=== PATIENT | female | born 2000 | race Caucasian/White ===

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

== ENCOUNTER → 2021-03-26 | Outpatient (REF) | payer OTHER ==
[2021-03-26 17:57] LABS: FOLLICLE STIMULATING HORMONE 3.3 mIU/mL; LUTEINIZING HORMONE 4.5 mIU/mL; PROLACTIN 8.5 NG/ML
== END ==
LOC: M LAB REF 16:19
PROVIDERS: ATTEND Internal Medicine
DX: N91.2 Amenorrhea, unspecified (principal); Z02.1 Encounter for pre-employment examination

== ENCOUNTER → 2024-04-28 | Outpatient (REF) | payer OTHER | LOC: M SFHCWAGY 13:25 | PROVIDERS: ATTEND Nurse Practitioner Family | DX: Z12.4 Encounter for screening for malignant neoplasm of cervix (principal) ==

== ENCOUNTER → 2024-06-02 | Outpatient (CLI) | payer OTHER | LOC: M RAD 08:47 | PROVIDERS: ATTEND Internal Medicine | DX: R10.11 Right upper quadrant pain (principal); R93.2 Abnormal findings on diagnostic imaging of liver and biliary tract ==

== ENCOUNTER → 2024-07-07 | Outpatient (CLI) | payer OTHER | LOC: M WHC 14:49 | PROVIDERS: ATTEND Nurse Practitioner Family | DX: N92.6 Irregular menstruation, unspecified (principal); R10.2 Pelvic and perineal pain ==

== ENCOUNTER → 2025-01-10 | Outpatient (REF) | payer OTHER ==
[2025-01-10 13:41] LABS: HCG, SERUM QUANTITATIVE < 2.6 MIU/ML (<4.2)
[2025-01-10 13:43] LABS: C REACTIVE PROTEIN QUANTITATIV 0.74 MG/DL (<1.0)
[2025-01-10 14:18] LABS: MONO REFLEX EBV COMP POSITIVE (NEGATIVE)
== END ==
LOC: M LAB REF 12:41
PROVIDERS: ATTEND Internal Medicine
DX: N91.2 Amenorrhea, unspecified (principal); R10.12 Left upper quadrant pain

== ENCOUNTER → 2025-01-10 | Outpatient (REF) | payer OTHER | LOC: M LAB REF 12:06 | PROVIDERS: ATTEND Internal Medicine | DX: J02.9 Acute pharyngitis, unspecified (principal) ==

== ENCOUNTER → 2025-01-25 | Outpatient (REF) | payer OTHER ==
[2025-01-25 21:28] LABS: APPEARANCE, URINE CLEAR (CLEAR); BACTERIA, URINE AUTO NEGATIVE (NEGATIVE); BILIRUBIN, URINE AUTO NEGATIVE (NEGATIVE); BLOOD, URINE BLOOD NEGATIVE (NEGATIVE); COLOR, URINE YELLOW (YELLOW); GLUCOSE, URINE (UA) AUTO NEGATIVE (NEGATIVE); KETONE, URINE AUTO NEGATIVE (NEGATIVE); LEUKOCYTE ESTERASE, URINE AUTO 2+ (NEGATIVE); NITRITE, URINE AUTO NEGATIVE (NEGATIVE); PROTEIN, URINE AUTO NEGATIVE (NEGATIVE); RBC, URINE AUTO 1 /HPF (0-3); SPECIFIC GRAVITY URINE AUTO 1.012 (1.002-1.035); SQUAMOUS EPITHELIAL CELL UR AU 1 /HPF (0-6); UROBILINOGEN, URINE AUTO 0.2 mg/dL (0.0-2.0); WBC, URINE AUTO 3 /HPF (0-3)
[2025-01-25 23:50] LABS: Trichomonas vaginalis (AMP) NOT DETECTED (NEGATIVE)
[2025-01-26 00:14] LABS: GC DNA AMPLIFICATION NEGATIVE (NEGATIVE)
== END ==
LOC: M LAB REF 20:47
PROVIDERS: ATTEND Physician Assistant Medical
DX: N39.0 Urinary tract infection, site not specified (principal); Z20.2 Contact with and (suspected) exposure to infections with a predominantly sexual mode of transmission

== ENCOUNTER → 2025-01-28 | Outpatient (CLI) | payer OTHER ==
[2025-01-28 18:21] LABS: BASO # 0.1 10^3/uL (0.0-0.2); BASO % 0.8 % (0.0-1.0); EOS % 0.7 % (0.0-3.0); HEMATOCRIT 42.8 % (36.0-47.0); HEMOGLOBIN 14.4 g/dl (12.0-15.5); LYMPH # 2.5 10^3/uL (1.5-5.0); LYMPH % 42.5 % (24.0-44.0); MEAN CORPUSCULAR HGB CONC 33.6 g/dl (32.0-36.5); MEAN CORPUSCULAR VOLUME 92.2 fl (80.0-96.0); MONO # 0.5 10^3/uL (0.0-0.8); MONO % 7.6 % (2.0-8.0); NEUTROPHILS # 2.8 10^3/uL (1.5-8.5); NEUTROPHILS % 47.6 % (36.0-66.0); PLATELET COUNT, AUTOMATED 264 10^3/uL (150-450); RED BLOOD COUNT 4.64 10^6/uL (4.00-5.40); WHITE BLOOD COUNT 5.9 10^3/uL (4.0-10.0)
[2025-01-28 18:47] LABS: ALKALINE PHOSPHATASE 81 U/L (35-104); ALT/SGPT 59 U/L (7.0-40); AST/SGOT 32 U/L (<34); BILIRUBIN,TOTAL 0.6 MG/DL (0.3-1.2); BLOOD UREA NITROGEN 14 MG/DL (9-23); CALCIUM LEVEL 9.6 MG/DL (8.5-10.1); CARBON DIOXIDE LEVEL 31 MMOL/L (20-31); CHLORIDE LEVEL 99 MMOL/L (98-107); CREATININE FOR GFR 0.82 MG/DL (0.55-1.30); GLOMERULAR FILTRATION RATE > 90.0 (>60); GLUCOSE, FASTING 89 MG/DL (60-100); POTASSIUM SERUM 4.2 MMOL/L (3.5-5.1); SODIUM LEVEL 138 MMOL/L (136-145); TOTAL PROTEIN 7.9 G/DL (5.7-8.2)
== END ==
LOC: M LAB 17:35
PROVIDERS: ATTEND Physician Assistant
DX: R10.32 Left lower quadrant pain (principal)

== ENCOUNTER → 2025-02-01 | Outpatient (CLI) | payer OTHER ==
[~2025-02-01] MED LIST: GASTROGRAFIN SOLUTION 30ML As Ordered ONE
== END ==
LOC: M RAD 08:49
PROVIDERS: ATTEND Internal Medicine
DX: R10.12 Left upper quadrant pain (principal); R16.0 Hepatomegaly, not elsewhere classified; R16.1 Splenomegaly, not elsewhere classified
CPT/HCPCS: 74176; Q9963

== ENCOUNTER → 2025-04-27 | Outpatient (REF) | payer OTHER ==
[~2025-04-27] MED LIST changes: +FOLI0.4T5 PO; -GASTROGRAFIN SOLUTION 30ML As Ordered ONE; +MAGN250C PO; +MULTTAB61 PO; +ONDA-282 PO; +SPIR50TA4 PO; +VITA100093 PO; +VITA100T91 PO; +VITA500C24 PO
[2025-04-27 17:32] LABS: PLATELET COUNT, AUTOMATED 287 10^3/uL (150-450)
[2025-04-27 17:35] LABS: ALT/SGPT 29 U/L (7.0-40); AST/SGOT 27 U/L (<34); CALCIUM LEVEL 10.0 MG/DL (8.5-10.1); CARBON DIOXIDE LEVEL 31 MMOL/L (20-31); CHLORIDE LEVEL 102 MMOL/L (98-107); CREATININE FOR GFR 0.89 MG/DL (0.55-1.30); GLOMERULAR FILTRATION RATE > 90.0 (>60); IRON (FE) 53 UG/DL (50-170); POTASSIUM SERUM 4.6 MMOL/L (3.5-5.1); SODIUM LEVEL 143 MMOL/L (136-145)
[2025-04-27 17:45] LABS: VITAMIN B12 LEVEL 458 PG/ML (211-911)
[2025-04-27 18:16] LABS: ESTIMATED AVERAGE GLUCOSE 100.0 MG/DL (60-110)
== END ==
LOC: M LAB REF 16:31
PROVIDERS: ATTEND Student in an Organized Health Care Education/Training Program
DX: Z13.9 Encounter for screening, unspecified (principal); R53.83 Other fatigue; Z68.26 Body mass index [BMI] 26.0-26.9, adult

== ENCOUNTER → 2025-04-28 | Outpatient (CLI) | payer OTHER | LOC: M RAD 09:25 | PROVIDERS: ATTEND Student in an Organized Health Care Education/Training Program | DX: R53.1 Weakness (principal) ==

== ENCOUNTER 2025-05-17 10:02 | Day surgery (SDC) | payer OTHER ==
[~2025-05-17] VITALS: Ht 175.3 cm; Wt 82.6 kg
[~2025-05-17 10:02] MED LIST changes: -FOLI0.4T5 PO; +FOLI400T2 PO
[2025-05-17] MEDS ORDERED: LR 1,000 ML IV SCH ×2 (10:25→13:35)
[2025-05-17] MEDS: SCOPOLAMINE 1MG TRANSDERMAL PATCH TOP ONE (10:56)
[2025-05-17] MEDS ORDERED: MIDAZOLAM INJ 2 MG/2 ML VIAL As Ordered ONE (12:37)
[2025-05-17] MEDS: INDOCYANINE GREEN 25 MG VIAL As Ordered ONE (12:48)
[2025-05-17] MEDS: ceFAZolin SOD 2 GM IV ONCE IV ONE (12:48)
[2025-05-17] MEDS: HEPARIN SOD 5000 UNITS/ML 1 ML VIAL/SYRINGE SQ ONE (12:51)
[2025-05-17] MEDS ORDERED: ACETAMINOPHEN 1000MG/100ML IV BAG As Ordered ONE (12:55)
[2025-05-17] MEDS ORDERED: SUGAMMADEX SODIUM 200 MG/2 ML VIAL As Ordered ONE (13:29)
[2025-05-17] MEDS: ALBUTEROL SULFATE 2.5 MG/0.5 ML INH CONCENTRATE NEB SOLN INH ONE (14:15)
[2025-05-17] MEDS: ONDANSETRON 4MG 2ML VIAL IV PRN (14:32)
[2025-05-17] MEDS: HYDROMORPHONE HCL 0.5 MG/0.5 ML SYRINGE IV PRN (14:34)
[2025-05-17 17:05] VITALS: BP 109/56; TEMP 97.6; O2SAT 96
== END 2025-05-17 17:13 | disposition home or self-care (01) ==
LOC: M SDC 10:02
PROVIDERS: ATTEND Surgery
DX: K80.20 Calculus of gallbladder without cholecystitis without obstruction (principal); L70.9 Acne, unspecified
CPT/HCPCS: 47562; 71045; 81025; 88304; J0131; J0665; J0690; J1171; J2250; J2405; J3010; Q9968; S2900

== ENCOUNTER → 2025-08-23 | Outpatient (REF) | payer OTHER ==
[2025-08-25 13:52] LABS: HPV APTIMA Detected (Not Detected)
== END ==
LOC: M SFHCWAGY 16:47
PROVIDERS: ATTEND Physician Assistant
DX: Z12.4 Encounter for screening for malignant neoplasm of cervix (principal); N89.8 Other specified noninflammatory disorders of vagina
CPT/HCPCS: 87070; 87624; G0123

== ENCOUNTER → 2025-09-01 | Outpatient (REF) | payer OTHER | LOC: M SFHCWAGY 17:19 | PROVIDERS: ATTEND Physician Assistant | DX: R87.612 Low grade squamous intraepithelial lesion on cytologic smear of cervix (LGSIL) (principal) ==